=== PATIENT | male | born 1990 | race Caucasian/White ===

== ENCOUNTER 2017-01-22 02:29 | Emergency (ER) | payer BC ==
[2017-01-22 02:44] VITALS: BP 148/58
[2017-01-22] MEDS ORDERED: Bupivacaine 0.5% 10 ML SDV ONE (03:05)
[2017-01-22] MEDS ORDERED: Bupivacaine 0.5% 10 ML SDV INJECT ONE (03:05)
--- NOTE | 2017-01-22 03:23 | EDM.PDOC ---
ED HPI Trauma - General Chief Complaint: Upper Extremity Injury/Pain Stated Complaint: laceration finger Time Seen by Provider: 01/22/17 02:38 Source: Reports: Patient History Limitations: Reports: No limitations - History of Present Illness INITIAL COMMENTS - FREE TEXT/NARRATIVE: Patient presents with a right finger tip avulsion after getting it slammed in the door of the local bar. He didn't fall or have any other injuries. His friend brought the finger tip in a cup of small amount of water and an ice cube. Patient is quite inebriated but alert and very conversive. Pain is 5/10. Allergies/ADRs: Allergies No Known Drug Allergies Allergy (Verified 06/26/16 00:49) Cannot Remember Home Medications: Ambulatory Orders Cetirizine [ZyrTEC] 10 mg PO DAILY PRN 06/26/16 [Confirmed 06/26/16] Escitalopram Oxalate [Lexapro] 15 mg PO DAILY 06/26/16 [Confirmed 01/22/17] Methylphenidate HCl [Ritalin] 20 mg PO BID 01/22/17 [Confirmed 01/22/17] clonazePAM [Clonazepam] 0.5 mg PO BID PRN 01/22/17 [Confirmed 01/22/17] Past Medical History Neurological History: Reports: Other (see below) Other Neuro History: TBI Psychiatric History: Reports: Bipolar, Depression, Suicidal ideation, Other ( see below) Other Psychiatric History: reports "always suicidal thoughts" - Past Surgical History HEENT Surgical History: Reports: Adenoidectomy, Tonsillectomy, Other (see below) Other HEENT Surgeries/Procedures: ear tubs and lated skin graft at time of tube removal Dermatological Surgical History: Reports: Skin graft Social & Family History - Tobacco Use Smoking Status *Q: Never Smoker Second Hand Smoke Exposure: Yes - Caffeine Use Caffeine Use: Reports: None - Recreational Drug Use Recreational Drug Use: No Review of Systems - Review of Systems Review Of Systems: ROS reveals no pertinent complaints other than HPI. Trauma Exam - Physical Exam Exam: See Below Exam Limited By: Intoxication General Appearance: Reports: alert, WD/WN, no apparent distress Head: Reports: atraumatic, normocephalic Eyes: bilateral eye: EOMI, normal inspection, PERRL Ears: Reports: normal external exam, hearing grossly normal Nose: Reports: normal inspection, no blood Throat/Mouth: Reports: Normal lips, Normal voice, No airway compromise Neck: Reports: full range of motion Respiratory Exam: Reports: no respiratory distress Extremities: Reports: other (Right finger tip is completely avulsed exposing the distal tuft. The finger nail and nailbed are mostly intact. Sensation is intact. No joint involvement and with full ROM.) Neurologic: Reports: no motor/sensory deficits, alert, oriented x 3 Skin: Reports: Normal color, Warm/dry - [place] Coma Score Best Eye Response (Garry): (4) open spontaneously Best Verbal Response (Garry): (5) oriented Best Motor Response ([place]): (6) obeys commands Course - Vital Signs Last Recorded V/S: Last Vital Signs Temp 98.3 F 01/22/17 02:42 Pulse 88 01/22/17 02:42 Resp 20 01/22/17 02:42 BP 148/58 H 01/22/17 02:42 Pulse Ox 96 01/22/17 02:42 - Orders/Labs/Meds Meds: Medications Discontinued Medications Generic Name Dose Route Start Last Admin Trade Name Leandro PRN Reason Stop Dose Admin Bupivacaine HCl Confirm 01/22/17 03:05 Sensorcaine-Mpf 0.5% Administered 01/22/17 03:06 Dose 10 ml .ROUTE .STK-MED ONE - Re-Assessments/Exams Free Text/Narrative Re-Assessment/Exam: 01/22/17 03:24 Discussed findings with patient and his mother. Also discussed with Dr. Booth (hand surgeon at [facility]) who accepted patient for transfer and treatment of the finger. A digital block with 3 cc of plain marcaine was placed after cleansing with betadine. This provided adequate analgesia. Patient is unsure of tetanus status so TDAP is given. Patient remained stable throughout ER course. 01/22/17 03:40 The finger tip was sent along in case it can be used. Departure - Departure Time of Disposition: 03:23 Disposition: DC/Tfer to Acute Hospital 02 Condition: good Clinical Impression: Avulsion, finger tip Qualifiers: Encounter type: initial encounter Qualified Code(s): S61.209A - Unspecified open wound of unspecified finger without damage to nail, initial encounter Forms: ED Department Discharge
[2017-01-22] MEDS ORDERED: Diphtheria,Pertussis(Acell),Tetanus Vaccine 0.5 ML SDV IM ONE (03:24)
== END 2017-01-22 03:50 ==
LOC: KA.ED 02:29
DX: S61.206A Unspecified open wound of right little finger without damage to nail, initial encounter (principal); G89.11 Acute pain due to trauma; F32.9 Major depressive disorder, single episode, unspecified; Z79.899 Other long term (current) drug therapy; W23.0XXA Caught, crushed, jammed, or pinched between moving objects, initial encounter
CPT/HCPCS: 64450; 90471; 90715; 99283

== ENCOUNTER 2017-03-07 08:51 | Emergency (ER) | payer BC ==
[2017-03-07] MEDS ORDERED: Ondansetron 4 MG/2 ML SDV ONE (09:25)
[2017-03-07] MEDS ORDERED: Sodium Chloride 0.9% 1,000 ML IV ONE (09:26)
[2017-03-07] MEDS ORDERED: Ondansetron 4 MG/2 ML SDV IVPUSH ONE (09:26)
--- NOTE | 2017-03-07 09:33 | EDM.PDOC ---
ED HPI GENERAL MEDICAL PROBLEM - General Chief Complaint: Behavioral/Psych Stated Complaint: SUICIDE ATTEMPT Time Seen by Provider: 03/07/17 09:22 Source of Information: Reports: Patient, EMS Notes Reviewed, Family History Limitations: Reports: No Limitations - History of Present Illness INITIAL COMMENTS - FREE TEXT/NARRATIVE: PT STATES HE WAS FEELING VERY DEPRESSED THIS WEEKEND. HAS BEEN DRINKING ALCOHOL FOR 24 HOURS AND TOOK 4 RITALIN TABS AT 0600. SAYS HE WASN'T TRYING TO COMMIT SUICIDE BUT HAS STRONG H/O SIMILAR ACTS OF ATTENTION. NOW FEELS WEAK AND HEART RACING. DENIES CP, SOB, OR COCAINE USE. POLICE PRESENT FOR TRANSPORT TO STATE FACILITY ONCE MEDICALLY CLEARED. Onset: Gradual Associated Symptoms: Reports: No Other Symptoms, Weakness - Related Data Allergies Allergy/AdvReac Type Severity Reaction Status Date / Time No Known Drug Allergies Allergy Cannot Verified 03/07/17 09:16 Remember Home Meds: Home Meds Cetirizine [ZyrTEC] 10 mg PO DAILY PRN 06/26/16 [History] Escitalopram Oxalate [Lexapro] 15 mg PO DAILY 06/26/16 [History] Methylphenidate HCl [Ritalin] 20 mg PO BID 01/22/17 [History] clonazePAM [Clonazepam] 0.5 mg PO BID PRN 01/22/17 [History] Past Medical History Neurological History: Reports: Other (See Below) Other Neuro History: TBI Psychiatric History: Reports: Bipolar, Depression, Suicidal Ideation, Other ( See Below) Other Psychiatric History: reports "always suicidal thoughts" - Past Surgical History HEENT Surgical History: Reports: Adenoidectomy, Tonsillectomy, Other (See Below) Dermatological Surgical History: Reports: Skin Graft Social & Family History - Family History Cardiac: Reports: Heart Failure Musculoskeletal: Reports: Arthritis Endocrine/Metabolic: Reports: Diabetes, Type I - Tobacco Use Smoking Status *Q: Never Smoker Second Hand Smoke Exposure: Yes - Caffeine Use Caffeine Use: Reports: None - Alcohol Use Days Per Week of Alcohol Use: 2 Number of Drinks Per Day: 1 Total Drinks Per Week: 2 - Recreational Drug Use Recreational Drug Use: No ED ROS GENERAL - Review of Systems Review Of Systems: ROS reveals no pertinent complaints other than HPI. Constitutional: Reports: Weakness HEENT: Reports: No Symptoms Respiratory: Reports: No Symptoms Cardiovascular: Reports: No Symptoms Endocrine: Reports: No Symptoms GI/Abdominal: Reports: No Symptoms : Reports: No Symptoms Musculoskeletal: Reports: No Symptoms Skin: Reports: No Symptoms Neurological: Reports: No Symptoms Psychiatric: Reports: No Symptoms Hematologic/Lymphatic: Reports: No Symptoms Immunologic: Reports: No Symptoms ED EXAM, BEHAVIORAL HEALTH - Physical Exam Exam: See Below Exam Limited By: No Limitations General Appearance: Alert, WD/WN, No Apparent Distress Eye Exam: Bilateral Eye: Normal Inspection Ears: Normal External Exam, Normal Canal Nose: Normal Inspection, Normal Mucosa, No Blood Throat/Mouth: Normal Inspection, Normal Oropharynx, No Airway Compromise Head: Atraumatic, Normocephalic Neck: Normal Inspection, Supple, Non-Tender, Full Range of Motion Respiratory/Chest: No Respiratory Distress, Lungs Clear, Normal Breath Sounds, No Accessory Muscle Use, Chest Non-Tender Cardiovascular: Normal Peripheral Pulses, Regular Rate, Rhythm, No Murmur, No Rub GI/Abdominal: Normal Bowel Sounds, Soft, Non-Tender, No Organomegaly, No Distention, No Abnormal Bruit, No Mass Back Exam: Normal Inspection. No: CVA Tenderness (L), CVA Tenderness (R) Extremities: Normal Inspection, Normal Range of Motion, Non-Tender, No Pedal Edema Neurological: Alert, CN II-XII Intact, Normal Cognition, Oriented x 3 Psychiatric: Normal Cognition, Oriented, Depressed Mood, Tearful. No: Homicidal Thoughts Skin Exam: Warm, Dry, Intact, Normal color, No rash EKG INTERPRETATION EKG Date: 03/07/17 Time: 09:35 Rhythm: other (SINUS TACHYCARDIA) Rate (beats/min): 104 [place]: normal P-wave: present QRS: normal ST-T: normal QT: normal Comparison: NA - no prior EKG COURSE, BEHAVIORAL HEALTH COMP - Course Vital Signs: Last Vital Signs Temp 99.5 F 03/07/17 09:00 Pulse 120 H 03/07/17 09:00 Resp 24 H 03/07/17 09:00 BP 140/72 03/07/17 09:00 Pulse Ox 95 03/07/17 09:00 Orders, Labs, Meds: Active Orders 24 hr Category Date Time Status EKG Documentation Completion [RC] ASDIRECTED Care 03/07/17 09:24 Ordered Chest 1V Frontal [CR] Stat Exams 03/07/17 09:23 Ordered CBC WITH AUTO DIFF [HEME] Stat Lab 03/07/17 09:23 Ordered COMPREHENSIVE METABOLIC PN,CMP [CHEM] Stat Lab 03/07/17 09:23 Ordered DRUG SCREEN, URINE [URCHEM] Stat Lab 03/07/17 09:25 Uncollected ETHANOL BLOOD MEDICAL [CHEM] Stat Lab 03/07/17 09:23 Ordered TROPONIN I [CHEM] Stat Lab 03/07/17 09:24 Ordered Sodium Chloride 0.9% @ 999 MLS/HR (1000ml) Med 03/07/17 09:26 Ordered Sodium Chloride 0.9% [Normal Saline] 1,000 ml IV .BOLUS EKG 12 Lead [EK] Stat Ther 03/07/17 09:23 Ordered Medication Orders Sodium Chloride (Normal Saline) 1,000 mls @ 999 mls/hr IV .BOLUS ONE Stop: 03/07/17 10:26 Medications Generic Name Dose Route Start Last Admin Trade Name Freq PRN Reason Stop Dose Admin Sodium Chloride 1,000 mls @ 999 mls/hr 03/07/17 09:26 Normal Saline IV 03/07/17 10:26 .BOLUS ONE Discontinued Medications Generic Name Dose Route Start Last Admin Trade Name Freq PRN Reason Stop Dose Admin Ondansetron HCl 4 mg 03/07/17 09:26 Zofran IVPUSH 03/07/17 09:27 ONETIME ONE Re-Assessment/Re-Exam: PT AFEBRILE, NONTOXIC APPEARING, VSS, ACTING APPROPRIATE Re-Assessment/Re-Exam Date: 03/07/17 (DISCUSSED CASE WITH LEONIDAS FROM [facility] AND PT WILL BE ACCEPTED FOR TRANSFER. POLICE WILL TRANSPORT) Medical Clearance: 03/07/17 10:06 MEDICALLY CLEARED FOR TRANSPORT TO [facility] Discharge vs Psych Eval/Treatment:: 03/07/17 10:07 PSYCH EVALUATION REQUIRED Departure - Departure Time of Disposition: 10:14 Disposition: DC/Tfer to Psych Hosp/Unit 65 Condition: fair Clinical Impression: Depression with suicidal ideation Depression Qualifiers: Depression Type: major depressive disorder Major depression recurrence: recurrent Active/Remission status: currently active Major depression episode severity: moderate Qualified Code(s): F33.1 - Major depressive disorder, recurrent, moderate - Discharge Information - My Orders Last 24 Hours: My Active Orders 03/07/17 09:23 Chest 1V Frontal [CR] Stat CBC WITH AUTO DIFF [HEME] Stat COMPREHENSIVE METABOLIC PN,CMP [CHEM] Stat ETHANOL BLOOD MEDICAL [CHEM] Stat EKG 12 Lead [EK] Stat 03/07/17 09:24 EKG Documentation Completion [RC] ASDIRECTED TROPONIN I [CHEM] Stat 03/07/17 09:25 DRUG SCREEN, URINE [URCHEM] Stat 03/07/17 09:26 Sodium Chloride 0.9% @ 999 MLS/HR (1000ml) Sodium Chloride 0.9% [Normal Saline] 1,000 ml IV .BOLUS - Assessment/Plan Last 24 Hours: My Active Orders 03/07/17 09:23 Chest 1V Frontal [CR] Stat CBC WITH AUTO DIFF [HEME] Stat COMPREHENSIVE METABOLIC PN,CMP [CHEM] Stat ETHANOL BLOOD MEDICAL [CHEM] Stat EKG 12 Lead [EK] Stat 03/07/17 09:24 EKG Documentation Completion [RC] ASDIRECTED TROPONIN I [CHEM] Stat 03/07/17 09:25 DRUG SCREEN, URINE [URCHEM] Stat 03/07/17 09:26 Sodium Chloride 0.9% @ 999 MLS/HR (1000ml) Sodium Chloride 0.9% [Normal Saline] 1,000 ml IV .BOLUS Assessment:: SUICIDAL IDEATION Plan: TRANSPORT TO PSYCH FACILITY
[2017-03-07 09:54] LABS: CHLORIDE,CL 103 mmol/L (98-115); SODIUM,NA 140 mmol/L (136-145)
[2017-03-07 11:28] VITALS: BP 130/69
== END 2017-03-07 10:53 ==
LOC: KA.ED 08:51
DX: F33.1 Major depressive disorder, recurrent, moderate (principal); R45.851 Suicidal ideations; F31.9 Bipolar disorder, unspecified; Z98.890 Other specified postprocedural states; Z79.899 Other long term (current) drug therapy
CPT/HCPCS: 71010; 80053; 80305; 84484; 85025; 93005; 96361; 96374; 99285; G0480; J2405; J7030

== ENCOUNTER 2023-06-15 20:30 | Emergency (ER) | payer BC ==
[2023-06-15 21:22] LABS: BASOPHILS ABSOLUTE AUTO 0.06 10^3/uL (0.00-0.10); BASOPHILS PERCENT AUTO 0.6 % (0.0-1.0); HEMOGLOBIN 15.8 g/dL (13.0-17.0); IMMATURE GRAN ABSOLUTE AUTO 0.03 10^3/uL (0.00-0.50); IMMATURE GRAN PERCENT AUTO 0.3 % (0.0-5.0); LYMPHOCYTES ABSOLUTE AUTO 3.88 10^3/uL (1.00-4.00); LYMPHOCYTES PERCENT AUTO 39.2 % (20.0-40.0); MEAN CORPUSCULAR HEMOGLOBIN 30.4 pg (27.0-31.0); MEAN CORPUSCULAR HGB CONC 34.3 g/dL (32.0-36.0); MEAN CORPUSCULAR VOLUME 88.5 fL (82.0-92.0); MEAN PLATELET VOLUME 9.4 fL (7.4-10.4); MONOCYTES ABSOLUTE AUTO 0.87 10^3/uL (0.10-0.80); MONOCYTES PERCENT AUTO 8.8 % (2.0-8.0); NEUTROPHILS ABSOLUTE AUTO 4.76 10^3/uL (2.50-7.00); NEUTROPHILS PERCENT AUTO 48.1 % (50.0-70.0); PLATELET COUNT,PLT 290 10^3/uL (150-400); RED CELL DISTRIBUTION WIDTH 12.9 % (11.5-14.5)
[2023-06-15 21:38] LABS: ALBUMIN 3.62 g/dL (3.40-5.00); ANION GAP 11.8 mmol/L (5-15); BILIRUBIN TOTAL 0.4 mg/dL (0.2-1.0); CALCIUM 9.2 mg/dL (8.7-10.3); CREATININE 0.88 mg/dL (0.51-1.17); EST CRCL DRUG DOSING (CG) 133.67 mL/min; POTASSIUM,K 3.8 mmol/L (3.5-5.1); PROTEIN TOTAL,TP 7.3 g/dL (6.4-8.2)
[2023-06-15] MEDS ORDERED: Metoprolol Tartrate 5 MG/5 ML SDV IVPUSH ONE (21:56)
[2023-06-15 22:51] VITALS: BP 137/62; PULSE 91
== END 2023-06-15 22:40 | disposition home or self-care (01) ==
LOC: KA.ED 20:30
DX: I48.0 Paroxysmal atrial fibrillation (principal)
CPT/HCPCS: 36415; 71045; 80053; 83735; 84484; 85025; 96374; 99285-25; J3490